=== PATIENT | female | born 1985 | race Caucasian/White ===

== ENCOUNTER 2025-02-19 22:57 | Emergency (ER) | payer OTHER ==
[~2025-02-19] VITALS: Ht 165.1 cm; Wt 82.3 kg
[~2025-02-19 22:57] MED LIST: LEVO75TA10 PO
[2025-02-19 23:07] VITALS: TEMP 98.2
[2025-02-19 23:30] LABS: PLATELET COUNT (AUTO) 293 K/uL (150-450); RED BLOOD CELL COUNT(AUTO) 4.88 MIL/uL (4.00-5.20); RED CELL DISTRIBUTION WIDTH 14.2 % (11.5-14.5); WHITE BLOOD COUNT (AUTO) 7.9 K/uL (4.5-11.0)
[2025-02-19 23:38] LABS: CALCIUM, TOTAL 9.3 mg/dL (8.8-10.5); CREATININE 0.84 mg/dL (0.60-1.30); GLOMERULAR FILTR. RATE CALC > 60 mL/min (>60); GLUCOSE,RANDOM 96 mg/dL (70-110); SODIUM SERUM 139 mmol/L (136-145); UREA NITROGEN, BLOOD 20 mg/dL (7-18)
[2025-02-19 23:54] LABS: TROPONIN I-HIGH SENSITIVITY Less Than 4 ng/L (<51)
[2025-02-20] MEDS: POTASSIUM CHLORIDE 20 MEQ ER TABLET PO ONE (01:58)
[2025-02-20 02:00] VITALS: BP 122/70; PULSE 62; RESP 14; O2SAT 98
== END 2025-02-20 02:06 | disposition home or self-care (01) ==
LOC: EMS 22:57
DX: R00.2 Palpitations (principal); E87.6 Hypokalemia; E03.9 Hypothyroidism, unspecified
CPT/HCPCS: 80048; 84484; 85025; 93005; 99284